=== PATIENT | female | born 1950 | race Caucasian/White ===

== ENCOUNTER 2016-09-28 14:29 | Emergency (ER) | payer OTHER ==
[~2016-09-28] VITALS: Ht 165.1 cm; Wt 110.4 kg
[2016-09-28 14:31] VITALS: BP 155/86
[2016-09-28] MEDS ORDERED: LIDOCAINE 2%, 20ML SQ ONE (15:00)
[2016-09-28] MEDS ORDERED: LIDOCAINE-MPF 2% ,5ML ONE (15:01)
[2016-09-28] MEDS ORDERED: MONT10TA9 PO (15:20)
[2016-09-28] MEDS ORDERED: ADAL40PE5 SQ (15:20)
[2016-09-28] MEDS ORDERED: MELO-184 PO (15:20)
[2016-09-28] MEDS ORDERED: LISI2.5T PO (15:20)
[2016-09-28] MEDS ORDERED: ASPI-496 PO (15:20)
[2016-09-28] MEDS ORDERED: METF10002 PO (15:20)
[2016-09-28] MEDS ORDERED: GLIM2TAB2 PO (15:20)
[2016-09-28] MEDS ORDERED: MULT-6 PO (15:20)
[2016-09-28] MEDS ORDERED: CETI10TA18 PO (15:20)
[2016-09-28] MEDS ORDERED: CYCL5TAB PO (15:20)
[2016-09-28] MEDS ORDERED: SIMV40TA3 PO (15:20)
[2016-09-28] MEDS ORDERED: ROPI0.2537 PO (15:20)
[2016-09-28] MEDS ORDERED: BACITRACIN ZINC OINT 500U/GM, 0.9 GM ONE (15:39)
== END 2016-09-28 16:01 | disposition home or self-care (01) ==
LOC: ED 15:08
DX: S01.01XA Laceration without foreign body of scalp, initial encounter (principal); I10 Essential (primary) hypertension; E11.9 Type 2 diabetes mellitus without complications; W45.8XXA Other foreign body or object entering through skin, initial encounter; Y93.89 Activity, other specified; Y99.8 Other external cause status; Y92.009 Unspecified place in unspecified non-institutional (private) residence as the place of occurrence of the external cause
CPT/HCPCS: 12001

== ENCOUNTER 2018-03-25 11:20 | Emergency (ER) | payer MEDICARE, OTHER ==
[~2018-03-25] VITALS: Ht 165.1 cm; Wt 105.4 kg
[~2018-03-25 11:20] MED LIST: ADAL40PE5 SQ; ASPI-496 PO; CETI10TA18 PO; CYCL5TAB PO; GLIM2TAB2 PO; LISI2.5T PO; MELO15TA24 PO; METF10002 PO; MONT10TA9 PO; MULT-6 PO; ROPI0.254 PO; SIMV40TA3 PO
[2018-03-25] MEDS ORDERED: IBUPROFEN 200 MG TABLET PO ONE (12:30)
[2018-03-25 12:44] LABS: RAPID INFLUENZA A Negative (Negative); RAPID INFLUENZA B Negative (Negative)
[2018-03-25] MEDS ORDERED: IBUPROFEN 200 MG TABLET ONE (12:50)
[2018-03-25] MEDS ORDERED: CHOL200040 PO (12:57)
[2018-03-25] MEDS ORDERED: LOSA25TA6 PO (12:58)
[2018-03-25] MEDS ORDERED: BACL-19 PO (12:59)
[2018-03-25] MEDS ORDERED: TIZA2CAP PO (13:43)
[2018-03-25] MEDS ORDERED: METH5TAB6 PO (13:43)
[2018-03-25] MEDS ORDERED: IBUP-1223 PO (13:43)
[2018-03-25] MEDS ORDERED: humira SQ (13:47)
[2018-03-25 13:59] VITALS: BP 126/56
== END 2018-03-25 14:02 | disposition home or self-care (01) ==
LOC: ED 13:08
DX: J02.9 Acute pharyngitis, unspecified (principal); R05 Cough; J31.0 Chronic rhinitis; I10 Essential (primary) hypertension; E11.9 Type 2 diabetes mellitus without complications; M19.90 Unspecified osteoarthritis, unspecified site
CPT/HCPCS: 71046; 87081; 87147; 87400; 87880; 93005; 99284

== ENCOUNTER 2018-10-31 14:53 | Emergency (ER) | payer MEDICARE ==
[~2018-10-31] VITALS: Ht 165.1 cm; Wt 106.6 kg
[~2018-10-31 14:53] MED LIST changes: +BACL-19 PO; +CHOL200040 PO; +IBUP-1223 PO; +LOSA25TA25 PO; +METH5TAB6 PO; +TIZA2CAP PO; +humira SQ
[2018-10-31 15:06] VITALS: BP 137/82
--- NOTE | 2018-10-31 15:18 | NUR ---
PT AMBULATORY TO ROOM FROM TRIAGE. CHANGING INTO GOWN.
--- NOTE | 2018-10-31 15:23 | NUR ---
PT RED AND SWOLLEN AROUND NOSE AND RIGHT CHEEK. STATES IT STARTED MONDAY. HERE TODAY BECAUSE IT IS GETTING WORSE. STATES IT ACHES. DENIES N/T. MD WAS AT BEDSIDE TO ASSESS PT. PT AWARE OF POC.
== END 2018-10-31 15:51 | disposition home or self-care (01) ==
LOC: ED 15:45
DX: J34.0 Abscess, furuncle and carbuncle of nose (principal); L03.211 Cellulitis of face; E11.9 Type 2 diabetes mellitus without complications; I10 Essential (primary) hypertension
CPT/HCPCS: 99283